=== PATIENT | female | born 1990 ===

== ENCOUNTER 2023-05-11 01:53 | Emergency (ER) | payer SELFPAY ==
[2023-05-11] MEDS ORDERED: Sodium Chloride 0.9% 10 ML Syringe FLUSH PRN (02:33)
[2023-05-11] MEDS ORDERED: Sodium Chloride 0.9% 2.5 ML Syringe FLUSH PRN (02:33)
[2023-05-11 02:52] LABS: BASOPHILS PERCENT AUTO 0.4 % (0.0-1.5); EOSINOPHILS ABSOLUTE AUTO 0.6 K/uL (0.0-0.7); HEMATOCRIT 43.4 % (36.0-46.0); HEMOGLOBIN 14.8 g/dL (12.0-16.0); LYMPHOCYTES ABSOLUTE AUTO 2.2 K/uL (0.6-2.4); LYMPHOCYTES PERCENT AUTO 23.5 % (16.0-40.0); MEAN CORPUSCULAR HEMOGLOBIN 32.7 pg (27.0-32.0); MEAN CORPUSCULAR HGB CONC 34.1 g/dL (31.0-37.0); MEAN CORPUSCULAR VOLUME 95.8 fL (80.0-98.0); MONOCYTES ABSOLUTE AUTO 0.6 K/uL (0.0-0.8); MONOCYTES PERCENT AUTO 6.9 % (0.0-15.0); NEUTROPHILS ABSOLUTE AUTO 5.7 K/uL (1.4-5.7); NEUTROPHILS PERCENT AUTO 62.2 % (48.0-80.0); NRBC ABSOLUTE 0 K/uL; PLATELET COUNT,PLT 264 K/uL (150-400); RED BLOOD CELL COUNT 4.53 M/uL (4.30-5.90); WHITE BLOOD CELL COUNT,WBC 9.16 K/uL (4.0-11.0)
[2023-05-11 03:03] LABS: INR 0.97 (0.86-1.11)
[2023-05-11] MEDS ORDERED: Iopamidol 755 Mg/ML 100 ML Bottle IVPUSH ONE (03:28)
[2023-05-11 03:41] LABS: ALBUMIN 3.8 g/dL (3.4-5.0); BILIRUBIN TOTAL 0.3 mg/dL (0.2-1.0); CALCIUM 8.8 mg/dL (8.5-10.1); CARBON DIOXIDE,CO2 23.5 mmol/L (21.0-32.0); CREATININE 0.8 mg/dL (0.6-1.0); EST CRCL DRUG DOSING (CG) 107.15 mL/min; POTASSIUM,K 3.8 mmol/L (3.5-5.1); PROTEIN TOTAL,TP 7.6 g/dL (6.4-8.2)
== END 2023-05-11 05:12 | disposition home or self-care (01) ==
LOC: MW.ED 01:53
DX: S02.2XXA Fracture of nasal bones, initial encounter for closed fracture (principal); Z88.0 Allergy status to penicillin; Y04.0XXA Assault by unarmed brawl or fight, initial encounter
CPT/HCPCS: 36415; 70450; 70486; 70498; 71045; 73060; 74177; 80053; 84703; 85025; 85610; 86850; 86900; 86901; 99284; J3490; Q9967